=== PATIENT | female | born 1990 | race Caucasian/White ===

== ENCOUNTER 2016-06-26 20:34 | Emergency (ER) | payer BC ==
[2016-06-26 21:28] VITALS: BP 121/65
--- NOTE | 2016-06-26 22:09 | UC ---
Throat Pain/Nasal Olvin HPI - HPI Summary HPI Summary: complaint of sore throat that started yesterday woke up with body aches chills and headache fatigued intermittent headache denies nasal congestion and cough took some dayquil with relief of fever - History of Current Complaint Chief Complaint: UCRespiratory Stated Complaint: WHITE SPOTS IN THROAT Time Seen by Provider: 06/26/16 22:02 Hx Obtained From: Patient Hx Last Menstrual Period: 2-3 wks ago - Allergies/Home Medications Allergies/Adverse Reactions: Allergies Allergy/AdvReac Type Severity Reaction Status Date / Time No Known Allergies Allergy Verified 06/26/16 21:28 Home Medications: Home Medications Dayquil 06/26/16 [History] PMH/Surg Hx/FS Hx/Imm Hx Previously Healthy: Yes Endocrine History Of: Denies: Diabetes, Thyroid Disease Cardiovascular History Of: Denies: Cardiac Disorders, Hypertension Respiratory History Of: Denies: COPD, Asthma GI/ History Of: Denies: Ulcer - Surgical History Surgical History: None - Family History Known Family History: Negative: Cardiac Disease, Hypertension, Diabetes - Social History Occupation: Employed Full-time Lives: With Family Alcohol Use: Occasionally Substance Use Type: None Smoking Status (MU): Light Every Day Tobacco Smoker Type: Cigarettes Amount Used/How Often: 1/2 PPD Cessation Counseling: Patient Advised to Stop Review of Systems Constitutional: Fever Skin: Negative Eyes: Negative ENT: Sore Throat Respiratory: Negative Cardiovascular: Negative Gastrointestinal: Negative Genitourinary: Negative Motor: Negative Neurovascular: Negative Musculoskeletal: Negative Neurological: Headache Psychological: Negative All Other Systems Reviewed And Are Negative: Yes Physical Exam Triage Information Reviewed: Yes Appearance: No Pain Distress, Well-Nourished Vital Signs: Initial Vital Signs Temp 98.6 F 06/26/16 21:25 Pulse 89 06/26/16 21:25 Resp 12 06/26/16 21:25 BP 121/65 06/26/16 21:25 Pulse Ox 100 06/26/16 21:25 Vital Signs Reviewed: Yes Eyes: Positive: Conjunctiva Clear ENT: Positive: Pharyngeal erythema, Nasal congestion, Nasal drainage, TMs normal. Negative: Tonsillar swelling Neck: Positive: No Lymphadenopathy Respiratory: Positive: Lungs clear, Normal breath sounds, No respiratory distress Cardiovascular: Positive: RRR, No Murmur, Pulses Normal Abdomen Description: Positive: Nontender, Soft Bowel Sounds: Positive: Present Musculoskeletal: Positive: No Edema Neurological Exam: Normal Psychological Exam: Normal Skin Exam: Normal Throat Pain/Nasal Course/Dx - Differential Dx/Diagnosis Differential Diagnosis/HQI/PQRI: Influenza, Pharyngitis, Tonsillitis Provider Diagnoses: viral pharyngitis Discharge - Discharge Plan Condition: Stable Disposition: HOME Patient Education Materials: Pharyngitis (ED) Referrals: Non Staff,Doctor [Primary Care Provider] - [facility] [Outside] Additional Instructions: Your blood pressure is pre-hypertensive reading. Please contact your primary care provider within 1 day -4 weeks for further evaluation. PHARYNGITIS (Sore Throat) What is Pharyngitis? The medical name for a sore throat is Pharyngitis. It is caused by an infection or irritation of your throat or tonsils. The infection can be caused by a virus or by bacteria. Not everyone with Pharyngitis needs antibiotics. Antibiotics will not make viral infections better, and they will not help a sore throat caused by irritation. Symptoms May Include: Sore throat Swelling of the glands in the neck Trouble or pain with swallowing Fever Headache Cough Extreme tiredness Ear pain Treatment Recommendations: Gargle every few hours with a solution of 1/4 teaspoon of salt dissolved in 1/ 2 cup of warm water. Drink plenty of warm beverages, like tea with lemon, (with or without honey) and soup. You may eat and drink cold foods and liquids like frozen yogurt, popsicles, and ice water if that makes your throat feel better. The goal is to keep you well hydrated. Use a "cool-mist" vaporizer or humidifier in the room where you spend most of your time. If you get a sore throat often, consider adding an electronic air filter and humidifier to your furnace system. Don't smoke. Do not eat spicy foods. Take medicine exactly as prescribed. If you do not think it is helping, call your healthcare provider. Do not increase how much or how often you take it without getting their OK first. Non-prescription anti-inflammatory medicine like ibuprofen (Motrin, Advil) or naproxen (Aleve) may help lessen the pain. You should not take these medicines if you have had bleeding in your stomach in the past. Acetaminophen ( Tylenol) is another choice of medicine that may help the pain. If pain medicine that makes you tired or sleepy or contains narcotics is prescribed, you should not drink, drive, or participate in any other activities that you need to be clear-headed for. Please keep all medicines out of the reach of children. Do not get in close contact with anyone you know who has a sore throat. Use throat lozenges (Cepostat, [place], etc.) or suck on hard candy for temporary relief of the pain with swallowing. (Do not give to children under age 5.) Call Your Doctor or Return Here IF: Your symptoms do not start to get better within 2 days or you become worse. You have a fever over 101.0 F orally. You cant swallow liquids or saliva. You are drooling. You start to have trouble breathing. You start to have a rash. You start to have a stiff neck. You start to have pain in your chest. You start to have any symptoms that are new or worry you.
== END 2016-06-26 22:35 | disposition home or self-care (01) ==
LOC: UCEAST 20:34
DX: J02.9 Acute pharyngitis, unspecified (principal); M79.1 Myalgia; R51 Headache; R53.83 Other fatigue; F17.210 Nicotine dependence, cigarettes, uncomplicated
CPT/HCPCS: 87651; 99211; G0463

== ENCOUNTER 2017-02-08 10:35 | Emergency (ER) | payer BC ==
[2017-02-08 11:33] VITALS: BP 119/79
--- NOTE | 2017-02-08 13:00 | UC ---
Throat Pain/Nasal Olvin HPI - HPI Summary HPI Summary: This is a 26 yo female who presents with c/o mouth pain that started in the last 24 hours. She reports a burning sensation on her tongue and roof of her mouth. No fevers or sore throat. She has been taking Macrodantin for a UTI and reports cold like symptoms x 4 days. - History of Current Complaint Chief Complaint: UCGeneralIllness Stated Complaint: MOUTH PAIN Hx Last Menstrual Period: 01/26/17 - Allergies/Home Medications Allergies/Adverse Reactions: Allergies Allergy/AdvReac Type Severity Reaction Status Date / Time No Known Allergies Allergy Verified 02/08/17 11:33 Home Medications: Home Medications Nitrofurantoin Macrocrystals* [Macrodantin*] 100 mg PO BID 02/08/17 [History Confirmed 02/08/17] PMH/Surg Hx/FS Hx/Imm Hx Previously Healthy: Yes - Surgical History Surgical History: None - Family History Family History: none pertinent - Social History Alcohol Use: Occasionally Substance Use Type: None Smoking Status (MU): Current Some Day Smoker Type: Cigarettes Amount Used/How Often: 1/2 PPD Review of Systems Constitutional: Negative Skin: Negative Eyes: Negative ENT: Other - mouth pain/burning Respiratory: Negative Cardiovascular: Negative Gastrointestinal: Negative Genitourinary: Negative Motor: Negative Neurovascular: Negative Musculoskeletal: Negative Neurological: Negative Psychological: Negative Is Patient Immunocompromised?: No All Other Systems Reviewed And Are Negative: Yes Physical Exam Triage Information Reviewed: Yes Appearance: Well-Appearing Vital Signs: Initial Vital Signs Temp 98.5 F 02/08/17 11:27 Pulse 93 02/08/17 11:27 Resp 20 02/08/17 11:27 BP 119/79 02/08/17 11:27 Pulse Ox 100 02/08/17 11:27 Eyes: Positive: Conjunctiva Clear ENT: Positive: Pharynx normal, TMs normal, Other - erythema and satelite papules of the soft palate, thick white/yellow adherent coating to the tongue Neck: Positive: Supple, Nontender, No Lymphadenopathy Respiratory: Positive: Chest non-tender, Lungs clear. Negative: Crackles, Rhonchi, Stridor, Wheezing Cardiovascular: Positive: RRR, No Murmur Abdomen Description: Positive: Nontender Bowel Sounds: Positive: Present Musculoskeletal Exam: Normal Musculoskeletal: Positive: Strength Intact Neurological Exam: Normal Neurological: Positive: Alert Psychological Exam: Normal Skin Exam: Normal Throat Pain/Nasal Course/Dx - Course Course Of Treatment: This is an otherwise healthy 26 yo female currently being treated for a UTI and has cold like symptoms who presents with c/o mouth pain and a burning sensation associated. Exam is c/w thrush. - Differential Dx/Diagnosis Differential Diagnosis/HQI/PQRI: Laryngitis, Pharyngitis, Tonsillitis Provider Diagnoses: 1. Thrush Discharge - Discharge Plan Condition: Stable Disposition: HOME Prescriptions: Nystatin SUSPENSION* 100,000 unit MT QID #1 bottle Patient Education Materials: Oral Candidiasis (ED) Referrals: No Primary Care Phys,NOPCP [Primary Care Provider] - Additional Instructions: Instructions: 1. Take nystatin as directed for the next 7days 2. Follow up if your symptoms do not improve over the next few days
== END 2017-02-08 13:20 | disposition home or self-care (01) ==
LOC: UCEAST 10:35
DX: B37.0 Candidal stomatitis (principal); N39.0 Urinary tract infection, site not specified; Z72.0 Tobacco use
CPT/HCPCS: 99212; G0463

== ENCOUNTER 2018-03-26 13:48 | Emergency (ER) | payer BC ==
[2018-03-26 13:58] VITALS: BP 126/84
--- NOTE | 2018-03-26 14:35 | UC ---
Ear Complaint HPI - HPI Summary HPI Summary: 27-year-old female presents with 3 day history of bilateral ear fullness. States she has been unable to pop her ears, has occasional sharp pain in the ears, and yesterday had a single episode of positional vertigo. Denies fever, chills, hearing loss, tinnitus, ear drainage, nasal congestion, sore throat, or cough. - History of Current Complaint Chief Complaint: UCGeneralIllness Stated Complaint: EAR PAIN Time Seen by Provider: 03/26/18 14:24 Hx Obtained From: Patient Hx Last Menstrual Period: last week Pain Intensity: 4 - Allergies/Home Medications Allergies/Adverse Reactions: Allergies Allergy/AdvReac Type Severity Reaction Status Date / Time No Known Allergies Allergy Verified 03/26/18 13:58 Home Medications: Home Medications Cbd Oil 03/26/18 [History] Multivitamin [Multivitamins] 1 cap PO DAILY 03/26/18 [History Confirmed 03/26/18 ] PMH/Surg Hx/FS Hx/Imm Hx Previously Healthy: Yes - Denies significnat PMH - Surgical History Surgical History: None - Family History Known Family History: Positive: Non-Contributory Family History: lung cancer and throat cancer - Social History Occupation: Employed Full-time Lives: Alone Alcohol Use: Weekly Substance Use Type: None Smoking Status (MU): Heavy Every Day Tobacco Smoker Type: Cigarettes Amount Used/How Often: 1/2 PPD Review of Systems All Other Systems Reviewed And Are Negative: Yes Constitutional: Negative: Fever, Chills, Fatigue Eyes: Negative: Diplopia, Drainage, Eye Redness, Photophobia ENT: Positive: Ear Ache. Negative: Sore Throat, Nasal Discharge, Sinus Congestion, Sinus Pain/Tenderness Respiratory: Negative: Shortness Of Breath, Cough Neurological: Negative: Headache Is Patient Immunocompromised?: No Physical Exam - Summary Physical Exam Summary: GENERAL APPEARANCE: Well developed, well nourished, alert and cooperative, and appears to be in no acute distress. EYES: PERRL, EOM intact. Conjunctiva clear. Vision is grossly intact. EARS: External auditory canals clear. Few air bubbles noted behind bilateral TMs. No erythema. Hearing grossly intact. NOSE: No nasal congestion or discharge. THROAT: Oral cavity and pharynx normal. No inflammation, swelling, exudate, or lesions. Teeth and gingiva in good general condition. NECK: Neck supple, non-tender without lymphadenopathy. CARDIAC: Normal S1 and S2. No S3, S4 or murmurs. Rhythm is regular. There is no peripheral edema, cyanosis or pallor. Extremities are warm and well perfused. Capillary refill is less than 2 seconds. LUNGS: Clear to auscultation and percussion without rales, rhonchi, wheezing or diminished breath sounds. ABDOMEN: Positive bowel sounds. Soft, nondistended, nontender. No guarding or rebound. No masses or hepatosplenomegally. MUSKULOSKELETAL: ROM intact to all extremities. No joint erythema or tenderness. Normal muscular development. Normal gait. NEUROLOGICAL: CN II-XII intact. Strength and sensation symmetric and intact throughout. Reflexes 2+ throughout. Cerebellar testing normal. SKIN: Skin normal color, texture and turgor with no lesions or eruptions. Triage Information Reviewed: Yes Vital Signs: Initial Vital Signs Temp 98.5 F 03/26/18 13:55 Pulse 106 03/26/18 13:55 Resp 16 03/26/18 13:55 BP 126/84 03/26/18 13:55 Pulse Ox 100 03/26/18 13:55 Vital Signs Reviewed: Yes Ear Complaint Course/Dx - Course Course Of Treatment: 27-year-old female presents with 3 day history of bilateral ear fullness. States she has been unable to pop her ears, has occasional sharp pain in the ears, and yesterday had a single episode of positional vertigo. Denies fever, chills, hearing loss, tinnitus, ear drainage , nasal congestion, sore throat, or cough. Afebrile. Vital signs stable. Exam unremarkable except for some air bubbles noted behind bilateral TMs. Suspect that she has some eustachian tube dysfunction with mild serous otitis. Will have the patient start fluticasone nasal spray 2 sprays each nostril once daily. She is to follow-up with her primary care provider in 7 days if symptoms do not improve. Warning symptoms were reviewed with the patient. She verbalizes understanding and agrees with plan of care. - Differential Dx/Diagnosis Differential Diagnosis/HQI/PQRI: Cerumen Impaction, Otitis Externa, Otitis Media , URI Provider Diagnosis: Dysfunction of both eustachian tubes Discharge - Sign-Out/Discharge Documenting (check all that apply): Patient Departure All imaging exams completed and their final reports reviewed: No Studies - Discharge Plan Condition: Stable Disposition: HOME Prescriptions: Fluticasone NASAL SPRAY 50MCG* [Flonase NASAL SPRAY 50MCG*] 2 spray BOTH NARES DAILY #1 btl Patient Education Materials: Serous Otitis Media (ED) Forms: *Work Release Referrals: Deo Rivas MD [Primary Care Provider] - 7 Days (If symptoms do not improve.) Additional Instructions: There was no evidence of ear infection on your exam. There was a little fluid behind the ear drums that may represents some eustachian tube dysfunction. Start fluticasone nasal spray 2 sprays each nostril once daily. You may take an over the counter pain medication such as acetaminophen (Tylenol ) or ibuprofen (Advil, Motrin) as needed for pain. Follow up with your primary care provider in 7 days if no improvement in symptoms. Seek immediate medical attention in the emergency room if you develop fever greater than 100.5 F, have persistent dizziness, worsening pain, drainage or bleeding from the ear(s), or have any worsening of symptoms. - Billing Disposition and Condition Condition: STABLE Disposition: Home
== END 2018-03-26 14:55 | disposition home or self-care (01) ==
LOC: UCEAST 13:48
DX: H69.93 Unspecified Eustachian tube disorder, bilateral (principal); F17.210 Nicotine dependence, cigarettes, uncomplicated
CPT/HCPCS: 99212; G0463

== ENCOUNTER 2018-04-26 21:29 | Emergency (ER) | payer BC ==
[2018-04-26] MEDS ORDERED: Nicotine Inhaler* 10 MG AMP INH PRN (21:46)
[2018-04-26] MEDS ORDERED: Mouth Piece, Nicotine* 1 EACH CARTRIDGE INH PRN (22:05)
[2018-04-26 22:07] LABS: ABS Basophils 0 10^3/ul (0-0.2); ABS Eosinophils 0.1 10^3/ul (0-0.6); ABS Lymphocytes 2.1 10^3/ul (1.0-4.8); ABS Monocytes 0.6 10^3/ul (0-0.8); ABS Neutrophils 4.1 10^3/ul (1.5-7.7); ABS Nucleated RBC 0 10^3/ul; Eosinophil % 1.4 %; Hematocrit 39 % (35-47); Hemoglobin 13.2 g/dl (12.0-16.0); Lymphocyte % 30.6 %; Mean Corpuscular HGB Conc 34 g/dl (31-36); Mean Corpuscular Hemoglobin 30 pg (27-31); Mean Corpuscular Volume 89 fL (80-97); Nucleated Red Blood Cells % 0; Platelet Count 233 10^3/ul (150-450); Red Blood Count 4.35 10^6/ul (4.00-5.40); Red Cell Distribution Width 13 % (10.5-15)
[2018-04-26 22:24] LABS: ALT 11 U/L (7-52); AST 17 U/L (13-39); Albumin 4.6 g/dL (3.2-5.2); Albumin/Globulin Ratio 1.8 (1-3); Alkaline Phosphatase 54 U/L (34-104); Anion Gap 8 mmol/L (2-11); BUN/Creatinine Ratio 11.3 (8-20); Blood Urea Nitrogen 8 mg/dL (6-24); CO2 Carbon Dioxide 22 mmol/L (22-32); Calcium 9.7 mg/dL (8.6-10.3); Chloride 108 mmol/L (101-111); EGFR African American 120.4 (>60); EGFR Non-African American 99.5 (>60); Globulin 2.5 g/dL (2-4); Glucose 100 mg/dL (70-100); Sodium 138 mmol/L (135-145); Total Protein 7.1 g/dL (6.4-8.9)
[2018-04-26 22:31] LABS: HCG Pregnancy < 0.60 mIU/mL
--- NOTE | 2018-04-26 22:42 | ED ---
Psychiatric Complaint - HPI Summary HPI Summary: Pt is a 27 y/o F presenting to the ED with a psychiatric complaint. She took a bottle of her pills (sertraline). She denies taking any other OTC meds. It was impulsive and not really caused by anything. Pt denies suicidal thoughts presently. - History Of Current Complaint Chief Complaint: EDOverdose Time Seen by Provider: 04/26/18 21:47 Hx Obtained From: Patient Hx Last Menstrual Period: last week Onset/Duration: Sudden Onset, Lasting Hours, Resolved Timing: Hours Severity Initially: Moderate Severity Currently: None Character: Depressed Aggravating Factor(s): Other - pt did not specify Alleviating Factor(s): Nothing Associated Signs And Symptoms: Positive: Negative Has Suicidal: Reports: Thoughts Ingestion History: Type/Name Of Drug - sertraline hcl, Amount Ingested - unknown - Allergies/Home Medications Allergies/Adverse Reactions: Allergies Allergy/AdvReac Type Severity Reaction Status Date / Time No Known Allergies Allergy Verified 04/26/18 21:34 Home Medications: Home Medications Sertraline* 1 tab PO DAILY 04/26/18 [History Confirmed 04/26/18] PMH/Surg Hx/FS Hx/Imm Hx Previously Healthy: No Endocrine/Hematology History: Denies: Hx Diabetes, Hx Thyroid Disease Cardiovascular History: Denies: Hx Hypertension Respiratory History: Denies: Hx Asthma, Hx Chronic Obstructive Pulmonary Disease (COPD) GI History: Denies: Hx Ulcer Psychiatric History: Reports: Hx Depression Infectious Disease History: No Infectious Disease History: Denies: Hx Clostridium Difficile, Hx Hepatitis, Hx Human Immunodeficiency Virus (HIV), Hx of Known/Suspected MRSA, Hx Shingles, Hx Tuberculosis, Hx Known/ Suspected VRE, Hx Known/Suspected VRSA, History Other Infectious Disease, Traveled Outside the [place] in Last 30 Days - Family History Known Family History: Positive: Non-Contributory Family History: lung cancer and throat cancer - Social History Alcohol Use: Weekly Substance Use Type: Reports: None Smoking Status (MU): Heavy Every Day Tobacco Smoker Type: Cigarettes Amount Used/How Often: 1/2 PPD Review of Systems Negative: Fever Negative: Vomiting All Other Systems Reviewed And Are Negative: Yes Physical Exam - Summary Physical Exam Summary: Appearance: Well-appearing, Well-nourished, lying in bed comfortable Skin: Warm, dry, no obvious rash Eyes: sclera anicteric, no conjunctival pallor ENT: mucous membranes moist Neck: deferred Respiratory: No signs of respiratory distress Cardiovascular: Appears well perfused, pulses are nml Abdomen: deferred Musculoskeletal: Moving all 4 extremities without obvious discomfort Neurological: Awake and alert, mentation is normal, speech is fluent and appropriate Psychiatric: affect is normal, does not appear anxious or depressed Triage Information Reviewed: Yes Vital Signs On Initial Exam: Initial Vitals Temp Pulse Resp BP Pulse Ox 99.2 F 88 16 123/103 100 04/26/18 21:30 04/26/18 21:30 04/26/18 21:30 04/26/18 21:30 04/26/18 21:30 Vital Signs Reviewed: Yes Diagnostics - Vital Signs Vital Signs Temp Pulse Resp BP Pulse Ox 04/26/18 22:27 75 18 101/73 99 04/26/18 22:26 70 18 94/54 99 04/26/18 22:00 73 17 99 04/26/18 21:56 81 16 106/79 99 04/26/18 21:55 76 15 98 04/26/18 21:30 99.2 F 88 16 123/103 100 - Laboratory Lab Results: Lab Results 04/26/18 04/26/18 Range/Units 22:00 22:00 WBC 7.0 (3.5-10.8) 10^3/ul RBC 4.35 (4.00-5.40) 10^6/ul Hgb 13.2 (12.0-16.0) g/dl Hct 39 (35-47) % MCV 89 (80-97) fL MCH 30 (27-31) pg MCHC 34 (31-36) g/dl RDW 13 (10.5-15) % Plt Count 233 (150-450) 10^3/ul MPV 9.0 (7.4-10.4) fL Neut % (Auto) 58.3 % Lymph % (Auto) 30.6 % [place] % (Auto) 9.2 % Eos % (Auto) 1.4 % Baso % (Auto) 0.5 % Absolute Neuts (auto) 4.1 (1.5-7.7) 10^3/ul Absolute Lymphs (auto) 2.1 (1.0-4.8) 10^3/ul Absolute Monos (auto) 0.6 (0-0.8) 10^3/ul Absolute Eos (auto) 0.1 (0-0.6) 10^3/ul Absolute Basos (auto) 0 (0-0.2) 10^3/ul Absolute Nucleated RBC 0 10^3/ul Nucleated RBC % 0 Sodium 138 (135-145) mmol/L Potassium 4.0 (3.5-5.0) mmol/L Chloride 108 (101-111) mmol/L Carbon Dioxide 22 (22-32) mmol/L Anion Gap 8 (2-11) mmol/L BUN 8 (6-24) mg/dL Creatinine 0.71 (0.51-0.95) mg/dL Est GFR ( Amer) 120.4 (>60) Est GFR (Non-Af Amer) 99.5 (>60) BUN/Creatinine Ratio 11.3 (8-20) Glucose 100 (70-100) mg/dL Calcium 9.7 (8.6-10.3) mg/dL Total Bilirubin 0.50 (0.2-1.0) mg/dL AST 17 (13-39) U/L ALT 11 (7-52) U/L Alkaline Phosphatase 54 (34-104) U/L Total Protein 7.1 (6.4-8.9) g/dL Albumin 4.6 (3.2-5.2) g/dL Globulin 2.5 (2-4) g/dL Albumin/Globulin Ratio 1.8 (1-3) TSH Pending Beta HCG, Quant < 0.60 mIU/mL Salicylates Pending Acetaminophen Pending Serum Alcohol Pending Result Diagrams: 04/26/18 22:00 04/26/18 22:00 Lab Statement: Any lab studies that have been ordered have been reviewed, and results considered in the medical decision making process. - EKG 2151 Cardiac Rate: NL - 68bpm ST Segment: Normal Ectopy: None Summary of EKG Findings: Sinus arrythmia Course/Dx - Differential Dx/Clinical Impression Provider Diagnosis: Situational depression, Overdose of antidepressant Discharge - Sign-Out/Discharge Documenting (check all that apply): Patient Departure, Sign-Out Patient Signing out patient TO: Bradley Francisco Patient Received Moderate/Deep Sedation with Procedure: No - Discharge Plan Condition: Stable Disposition: HOME Referrals: Deo Rivas MD [Primary Care Provider] - - Billing Disposition and Condition Condition: STABLE Disposition: Home - Attestation Statements Document Initiated by Yamilet: Yes Documenting Scribe: Connie Galdamez Provider For Whom Yamilet is Documenting (Include Credential): Bradley Headley MD. Scribe Attestation: Connie Page, scribed for Bradley Headley MD. on 04/28/18 at 1946. Scribe Documentation Reviewed: Yes Provider Attestation: The documentation as recorded by the yamilet, Connie Galdamez accurately reflects the service I personally performed and the decisions made by me, Bradley Headley MD. Status of Scribe Document: Viewed
[2018-04-26 22:43] LABS: Acetaminophen < 15 mcg/mL; Alcohol 15 mg/dL (<10); Salicylate < 2.50 mg/dL (<30)
[2018-04-26 22:45] LABS: Urine Appearance Clear; Urine Bilirubin Negative (Negative); Urine Blood Negative (Negative); Urine Color Yellow; Urine Glucose Negative (Negative); Urine Ketones Negative (Negative); Urine Nitrite Negative (Negative); Urine Protein Negative (Negative); Urine Specific Gravity 1.009 (1.010-1.030); Urine Urobilinogen Negative (Negative)
[2018-04-26 22:58] LABS: TSH (Thyroid Stimulating Horm) 1.43 mcIU/mL (0.34-5.60)
[2018-04-26 23:02] LABS: Barbiturates Urine Screen None Detected (None Detect); Benzodiazepine Urine Screen None Detected (None Detect); Urine Cannabinoids Screen None Detected (None Detect)
--- NOTE | 2018-04-27 07:06 | ED ---
Progress - Progress Note Progress Note: This patient was signed out from Dr. Headley to Dr. Francisco upon shift change at 07 :00 04/27/18 pending [facility]. Per pre billing clinician, Dr. Way has cleared the patient for discharge. - Consult/PCP Time Called: 23:00 Course/Dx - Course Course Of Treatment: This patient was signed out from Dr. Headley to Dr. Francisco upon shift change at 07:00 04/27/18 pending [facility]HE. Per [facility] pre billing clinician, Dr. Way has cleared the patient for discharge. - Diagnoses Provider Diagnoses: Situational depression - Provider Notifications Discussed Care Of Patient With: Livan Way Time Discussed With Above Provider: 10:40 Instructed by Provider To: Other - Per pre billing clinician, Dr. Way has cleared the patient for discharge. Discharge - Sign-Out/Discharge Documenting (check all that apply): Patient Departure - DC Patient Received Moderate/Deep Sedation with Procedure: No - Discharge Plan Condition: Stable Disposition: HOME Referrals: Deo Rivas MD [Primary Care Provider] - - Billing Disposition and Condition Condition: STABLE Disposition: Home - Attestation Statements Document Initiated by Scribe: Yes Documenting Scribe: Madhu Charles Provider For Whom Scribe is Documenting (Include Credential): Bradley Francisco MD Scribe Attestation: I, Madhu Charles, scribed for Bradley Francisco MD on 04/27/18 at 1731. Scribe Documentation Reviewed: Yes Provider Attestation: The documentation as recorded by the Madhu woodard accurately reflects the service I personally performed and the decisions made by me, Bradley Francisco MD Status of Scribe Document: Viewed
--- NOTE | 2018-04-27 08:17 | PN ---
ED Flex Patient Progress Note Subjective: This is a 27 year-old F who is pending admission to [facility] / transfer to another psychiatric facility / discharge to home / or being observed secondary to . Pt offers no complaints at this time or is c/o . Objective: Vitals: Most recent vital signs documented below. General NAD, Alert and oriented x3. Heart: rrr at bpm Lungs: CTA or with rales, rhonchi, wheezing Laboratory: Current laboratory results documented below. Assessment: Plan: Pending psychiatric or medical consultation to observe / transfer / admit / discharge will follow up daily . Vital Signs Temp Pulse Resp BP Pulse Ox 98.0 F 76 16 117/68 98 04/27/18 01:45 04/27/18 01:45 04/27/18 01:45 04/27/18 01:45 04/27/18 01:45 Lab Results - Entire Visit 04/26/18 04/26/18 04/26/18 22:36 22:36 22:00 WBC RBC Hgb Hct MCV MCH MCHC RDW Plt Count MPV Neut % (Auto) Lymph % (Auto) Geary % (Auto) Eos % (Auto) Baso % (Auto) Absolute Neuts (auto) Absolute Lymphs (auto) Absolute Monos (auto) Absolute Eos (auto) Absolute Basos (auto) Absolute Nucleated RBC Nucleated RBC % Sodium 138 Potassium 4.0 Chloride 108 Carbon Dioxide 22 Anion Gap 8 BUN 8 Creatinine 0.71 Est GFR ( Amer) 120.4 Est GFR (Non-Af Amer) 99.5 BUN/Creatinine Ratio 11.3 Glucose 100 Calcium 9.7 Total Bilirubin 0.50 AST 17 ALT 11 Alkaline Phosphatase 54 Total Protein 7.1 Albumin 4.6 Globulin 2.5 Albumin/Globulin Ratio 1.8 TSH 1.43 Beta HCG, Quant < 0.60 Urine Color Yellow Urine Appearance Clear Urine pH 5.0 Ur Specific [place] 1.009 L Urine Protein Negative Urine Ketones Negative Urine Blood Negative Urine Nitrate Negative Urine Bilirubin Negative Urine Urobilinogen Negative Ur Leukocyte Esterase Negative Urine Glucose Negative Salicylates < 2.50 Urine Opiates Screen None detected Acetaminophen < 15 Ur Barbiturates Screen None detected Ur Phencyclidine Scrn None detected Ur Amphetamines Screen Presumptive positive A U Benzodiazepines Scrn None detected Urine Cocaine Screen None detected U Cannabinoids Screen None detected Serum Alcohol 15 H 04/26/18 22:00 WBC 7.0 RBC 4.35 Hgb 13.2 Hct 39 MCV 89 MCH 30 MCHC 34 RDW 13 Plt Count 233 MPV 9.0 Neut % (Auto) 58.3 Lymph % (Auto) 30.6 Geary % (Auto) 9.2 Eos % (Auto) 1.4 Baso % (Auto) 0.5 Absolute Neuts (auto) 4.1 Absolute Lymphs (auto) 2.1 Absolute Monos (auto) 0.6 Absolute Eos (auto) 0.1 Absolute Basos (auto) 0 Absolute Nucleated RBC 0 Nucleated RBC % 0 Sodium Potassium Chloride Carbon Dioxide Anion Gap BUN Creatinine Est GFR ( Amer) Est GFR (Non-Af Amer) BUN/Creatinine Ratio Glucose Calcium Total Bilirubin AST ALT Alkaline Phosphatase Total Protein Albumin Globulin Albumin/Globulin Ratio TSH Beta HCG, Quant Urine Color Urine Appearance Urine pH Ur Specific [place] Urine Protein Urine Ketones Urine Blood Urine Nitrate Urine Bilirubin Urine Urobilinogen Ur Leukocyte Esterase Urine Glucose Salicylates Urine Opiates Screen Acetaminophen Ur Barbiturates Screen Ur Phencyclidine Scrn Ur Amphetamines Screen U Benzodiazepines Scrn Urine Cocaine Screen U Cannabinoids Screen Serum Alcohol
[2018-04-27 09:21] VITALS: BP 119/71
== END 2018-04-27 11:12 | disposition home or self-care (01) ==
LOC: ED 21:29
DX: F43.21 Adjustment disorder with depressed mood (principal); T43.222A Poisoning by selective serotonin reuptake inhibitors, intentional self-harm, initial encounter; Y92.9 Unspecified place or not applicable; F17.210 Nicotine dependence, cigarettes, uncomplicated
CPT/HCPCS: 36415; 80053; 80307; 80320; 80329; 81003; 84443; 84702; 85025; 93005; 99285; A9270-GY; G0480

== ENCOUNTER 2018-08-22 10:08 | Emergency (ER) | payer BC ==
[2018-08-22 12:02] VITALS: BP 101/66
--- NOTE | 2018-08-22 12:12 | UC ---
Lower Extremity/Ankle HPI - HPI Summary HPI Summary: 28 y/o female presents to the urgent care c/o for four days pt having a lot of joint pain, left leg, and hands. pt unsure if she has had ticks. afebrile. - History of Current Complaint Chief Complaint: UCGeneralIllness Stated Complaint: ANKLE/HIP/KNEE JOINTS SWOLLEN Time Seen by Provider: 08/22/18 12:08 Hx Obtained From: Patient Hx Last Menstrual Period: 08/08/18 Pain Intensity: 8 - Allergies/Home Medications Allergies/Adverse Reactions: Allergies Allergy/AdvReac Type Severity Reaction Status Date / Time No Known Allergies Allergy Verified 08/22/18 12:02 PMH/Surg Hx/FS Hx/Imm Hx - Surgical History Surgical History: None - Family History Known Family History: Positive: Non-Contributory Family History: lung cancer and throat cancer - Social History Alcohol Use: Weekly Substance Use Type: None Smoking Status (MU): Heavy Every Day Tobacco Smoker Type: Cigarettes Amount Used/How Often: 1/2 PPD Household Exposure Type: Cigarettes Physical Exam Vital Signs: Initial Vital Signs Temp 97.7 F 08/22/18 11:58 Pulse 81 08/22/18 11:58 Resp 18 08/22/18 11:58 BP 101/66 08/22/18 11:58 Pulse Ox 100 08/22/18 11:58 Lower Extremity Course/Dx - Differential Dx/Diagnosis Differential Diagnosis/HQI/PQRI: Gout, Infection, Other - lyme disease, RA, Provider Diagnosis: Joint pain Discharge - Sign-Out/Discharge Documenting (check all that apply): Patient Departure - d/C home All imaging exams completed and their final reports reviewed: No Studies - Discharge Plan Condition: Stable Disposition: HOME Patient Education Materials: Swollen Joint (ED) Referrals: Deo Rivas MD [Primary Care Provider] - 2 Days Additional Instructions: 1-Please take ibuprofen PO q6-8hrs prn as instructed after meals to alleviate pain and swelling. Increase fluid intake, eat well, rest and avoid strenuous exercise 2- Lyme screening, and other labs were sent to the lab, you will be notified of any abnormal results. Please salt in your diet and avoid standing up for long period of time, elevate your legs at night time 2- Please f/u with your PCP Dr Rivas in your appt 08/24/2018 for further evaluation and treatment on your multple joint pain. - Billing Disposition and Condition Condition: STABLE Disposition: Home
[2018-08-22 19:22] LABS: ABS Eosinophils 0.2 10^3/ul (0-0.6); ABS Lymphocytes 2.6 10^3/ul (1.0-4.8); ABS Monocytes 0.5 10^3/ul (0-0.8); ABS Neutrophils 3.4 10^3/ul (1.5-7.7); Eosinophil % 2.3 %; Hematocrit 38 % (35-47); Hemoglobin 12.9 g/dL (12.0-16.0); Lymphocyte % 38.8 %; Mean Corpuscular HGB Conc 34 g/dL (31-36); Mean Corpuscular Hemoglobin 30 pg (27-31); Mean Corpuscular Volume 89 fL (80-97); Mean Platelet Volume 10.7 fL (7.4-10.4); Nucleated Red Blood Cells % 0.1; Platelet Count 245 10^3/uL (150-450); Red Blood Count 4.27 10^6 /uL (3.70-4.87); Red Cell Distribution Width 13 % (10.5-15); White Blood Count 6.7 10^3/uL (3.5-10.8)
[2018-08-22 19:37] LABS: Albumin 4.5 g/dL (3.2-5.2); Anion Gap 4 mmol/L (2-11); CO2 Carbon Dioxide 26 mmol/L (22-32); Calcium 9.3 mg/dL (8.6-10.3); Chloride 108 mmol/L (101-111); Potassium 3.9 mmol/L (3.5-5.0); Sodium 138 mmol/L (135-145)
[2018-08-22 19:43] LABS: ALT 11 U/L (7-52); AST 15 U/L (13-39); Alkaline Phosphatase 54 U/L (34-104); BUN/Creatinine Ratio 14.3 (8-20); Blood Urea Nitrogen 9 mg/dL (6-24); C Reactive Protein < 1.00 mg/L (<8.01); EGFR African American 137.2 (>60); EGFR Non-African American 113.4 (>60); Globulin 2.3 g/dL (2-4); Glucose 83 mg/dL (70-100); Total Protein 6.8 g/dL (6.4-8.9)
== END 2018-08-22 13:00 | disposition home or self-care (01) ==
LOC: UCEAST 10:08
DX: M79.605 Pain in left leg (principal); M79.642 Pain in left hand; M79.641 Pain in right hand; M25.472 Effusion, left ankle; M25.471 Effusion, right ankle; M25.462 Effusion, left knee; M25.461 Effusion, right knee; M25.452 Effusion, left hip; M25.451 Effusion, right hip; F17.210 Nicotine dependence, cigarettes, uncomplicated
CPT/HCPCS: 36415; 80053; 85025; 86140; 86618; 99211; G0463